=== PATIENT | female | born 1945 | race Caucasian/White ===

== ENCOUNTER → 2017-01-30 | Outpatient (CLI) | payer OTHER ==
[~2017-01-30] MED LIST: EYED; OXYC1TAB3 PO
--- NOTE | 2017-01-31 08:02 | MAMMOGRAPHY REPORT ---
BILATERAL DIGITAL SCREENING MAMMOGRAM WITH CAD: 01/30/2017 CLINICAL HISTORY: Routine screening examination. TECHNIQUE: Bilateral CC and MLO views were obtained. Current study was also evaluated with a Comput er Aided Detection (CAD) system. COMPARISON: Comparison is made to exams dated: 11/23/2015 mammogram, 11/21/2014 mammogram, 11/18/20 13 mammogram, 11/14/2011 mammogram, and 11/11/2009 mammogram - [facility]. BREAST COMPOSITION: The tissue of both breasts is heterogeneously dense, which may obscure small ma sses. FINDINGS: There are a few scattered benign-appearing microcalcifications, stable in the right breast . Architectural distortion in the left upper outer quadrant is stable on all available prior mammog baldo, and likely secondary to previous surgical excisional biopsy. No new suspicious mass, architec tural distortion or cluster of microcalcifications is seen. IMPRESSION: ACR BI-RADS CATEGORY 1: NEGATIVE There is no mammographic evidence of malignancy. A 1 year screening mammogram is recommended. The p atient will receive written notification of the results. Approximately 10% of breast cancers are not detected with mammography. A negative mammographic repor t should not delay biopsy if a clinically suggestive mass is present. Nina Novak M.D. ay/:01/30/2017 16:43:45 Street Cleaner: Jaja JEFFERY)(M), [facility] letter sent: Normal 1/2 BI-RADS Code: ACR BI-RADS Category 1: Negative
== END | disposition home or self-care (01) ==
LOC: C.MAMM 09:31
PROVIDERS: ATTEND Internal Medicine
DX: Z12.31 Encounter for screening mammogram for malignant neoplasm of breast (principal)

== ENCOUNTER → 2018-02-05 | Outpatient (CLI) | payer OTHER ==
--- NOTE | 2018-02-06 15:15 | MAMMOGRAPHY REPORT ---
BILATERAL DIGITAL SCREENING MAMMOGRAM TOMOSYNTHESIS WITH CAD: 02/05/2018 CLINICAL HISTORY: Routine screening. Patient has no complaints. TECHNIQUE: Breast tomosynthesis in addition to standard 2D mammography was performed. Current study was also evaluated with a Computer Aided Detection (CAD) system. COMPARISON: Comparison is made to exams dated: 01/30/2017 mammogram, 11/23/2015 mammogram, 11/21/2014 mammogram, 11/18/2013 mammogram, 11/15/2012 mammogram, and 11/14/2011 mammogram - [facility]. BREAST COMPOSITION: The tissue of both breasts is heterogeneously dense, which may obscure small mas ses. FINDINGS: No suspicious mass, unexpected architectural distortion or cluster of microcalcifications i s seen. Faint focal architectural distortion in the upper outer posterior left breast appears stable dating back to at least 11/10/2008, most likely the site of prior benign surgery in the left breast. IMPRESSION: ACR BI-RADS CATEGORY 1: NEGATIVE There is no mammographic evidence of malignancy. A 1 year screening mammogram is recommended. The pa tient will receive written notification of the results. Approximately 10% of breast cancers are not detected with mammography. A negative mammographic report should not delay biopsy if a clinically suggestive mass is present. Nina Novak M.D. ay/:02/05/2018 16:56:40 Billet Heater Operator: Odalys RUIZ(Jayla)(M), [facility] letter sent: Normal 1/2 BI-RADS Code: ACR BI-RADS Category 1: Negative
== END | disposition home or self-care (01) ==
LOC: C.MAMM 13:29
PROVIDERS: ATTEND Internal Medicine
DX: Z12.31 Encounter for screening mammogram for malignant neoplasm of breast (principal)

== ENCOUNTER 2019-06-05 07:44 | Observation (INO) ==
--- NOTE | 2019-05-28 14:28 | PAT Medication Instructions ---
Medication Instructions Date of Service May 28, 2019 Home Medications losartan 50 mg PO QPM netarsudil [Rhopressa] 1 drp OPB HS Take evening before surgery losartan 50 mg PO QPM netarsudil [Rhopressa] 1 drp OPB HS Other Notes If you have any questions please call us at [phone] or [phone] or [phone] or [phone]
--- NOTE | 2019-05-29 08:48 | Anesthesiology Consultation ---
Date of Service May 29, 2019 Assessment & Plan (1) Encounter for pre-operative examination: - EK05/29/19: NSR at 62bpm. LVH with repolarization abnormality per unconfirmed report. EKG personally reviewed by Dr. Alfonso; given type of procedure/pmhx/fu nctional status, okay to proceed with surgery as scheduled without further cardiac testing/evaluation. - Possible difficult intubation: due to anatomy Chart Review Chart Review: Acceptable Risk for Surgery and Patient seen in Pre Admission Testing Teaching & Discussion Pre-Anesthesia Teaching/Discussion Notes: Instructed NPO after midnight before surgery,except medications with 15 cc of water. Medication instructions provided according to the PAT guidelines. History Surgery Operation Date: 06/05/19 11:00 Proposed Procedures p Left Breast Lumpectomy with Left [place] Lymph Node Biopsy, Excision Left Breast Papilloma, - Vicente Ewing MD, FACS s Right Breast Excision of Radial Scar times Two, Needle Local x Four (Injection Only) - Vicente Ewing MD, FACS Height/Weight Height: 4 ft 10.5 in Weight: 59.2 kg Allergies Allergy/AdvReac Type Severity Reaction Status Date / Time No Known Allergies Verified 05/23/19 13:48 Medications Home Medications Medication Instructions Recorded Confirmed Last Taken losartan 50 mg PO QPM 05/23/19 05/23/19 Unknown netarsudil [Rhopressa] 1 drp OPB HS 05/23/19 05/23/19 Unknown Past Medical History Medical History Cancer BREAST CANCER= NO CHEMO/RADIATION Glaucoma Hypertension Kidney stones Exercise / Class Metabolic Activity III < 4 Walking/Shop/Light housework Past Family History Family History Other No significant family history Past Surgical History Surgical History Benign tumor of parathyroid gland REMOVED H/O breast biopsy X 4 History of bilateral tubal ligation History of cataract surgery RIGHT/LEFT + STENTS History of tooth extraction Past Anesthesia History No Hx of Anesthesia Complications and No Family Hx of Anesthesia Complications History of PONV No Hx of PONV and No Hx of Motion Sickness Social History Smoking Status: Never smoker Do You Dip or Chew Tobacco: No Hx Alcohol Use: No Hx Substance Use: No substance use type: does not use Review of Systems Patient denies chest pain, shortness of breath, cough, wheezing, palpitations. Physical Exam Vital Signs VITALS BP 161/76 P 61 TEMP 97.5 SP02 97%RA RESP 16 PHYSICAL Full neck and c-spine range of motion. Full TMJ range of motion. TMD 2 finger breaths (small chin) Mallampati Score 4 Dentition: lower partial with implants, upper top permanent bridges "all over" Lungs: clear throughout to auscultation Cardiac: regular rate and rhythm, no murmurs noted Spine: kyphosis Carotid arteries: negative bruit Extremities: no edema Testing Laboratory Results 05/29/19 09:15 05/29/19 09:15 Electrocardiogram Date: 05/29/19 NSR at 62bpm. LVH with repolarization abnormality (unconfirmed).
[2019-05-29 09:56] LABS: Basophils # (auto) 0.02 K/uL (0-0.2); Basophils % (auto) 0.3 %; Eosinophils # (auto) 0.04 K/uL (0-0.5); Eosinophils % (auto) 0.5 %; Hematocrit (blood only) 40.8 % (37-47); Hemoglobin 13.5 g/dL (12.0-16.0); Immature Granulocytes # (auto) 0.01 K/uL (0.00-0.02); Immature Granulocytes % (auto) 0.1 %; Lymphocytes # (auto) 1.84 K/uL (1.2-3.4); Lymphocytes % (auto) 24.8 %; Mean Corpuscular Hgb Conc 33.1 g/dL (32-36); Mean Corpuscular Volume 87.4 fL (80-100); Mean Platelet Volume 8.8 fL (7.4-10.4); Monocytes # (auto) 0.62 K/uL (0.11-0.59); Monocytes % (auto) 8.3 %; Platelet Count 357 K/uL (130-400); RDW Coefficient of Variation 13.5 % (11.5-14.5); RDW Standard Deviation 43.3 fL (36.4-46.3); Red Blood Count 4.67 M/uL (4.2-5.4); White Blood Count 7.43 K/uL (4.8-10.8)
[2019-05-29 10:05] LABS: BUN Creatinine Ratio 28.5 (10-20); Calcium 9.7 mg/dl (8.5-10.1); Creatinine Clr Calc Pharmacy 88.5 ml/min; Est GFR (African American) 116.8; Est GFR (Non-African American) 100.8; Potassium 4.3 mmol/L (3.5-5.1)
[~2019-06-05 07:44] MED LIST changes: +CEFAZOLIN 2000MG 2,000 MG/15 ML SYR IV SCH; -EYED; +LR 15ML/HR IV SCH; +MIDAZOLAM HCL 1 MG/ML 2ML VIAL ONE; -OXYC1TAB3 PO; +fentaNYL citrate 100 MCG/2 ML VIAL ONE
[2019-06-05] MEDS ORDERED: ONDANSETRON INJ 2 MG/ML 2 ML VIAL IV PRN ×2 (09:41→13:23)
[2019-06-05] MEDS ORDERED: ATROPINE SULFATE 0.1 MG/ML 10ML SYR IV PRN (09:41)
[2019-06-05] MEDS ORDERED: ePHEDrine sulfate 50 MG/ML AMP IV PRN (09:41)
[2019-06-05] MEDS ORDERED: fentaNYL citrate 100 MCG/2 ML VIAL IV PRN (09:41)
--- NOTE | 2019-06-05 09:45 | Nuclear Medicine Report ---
LEFT BREAST LYMPHOSCINTIGRAPHY CLINICAL HISTORY: Breast cancer. COMPARISON STUDY: Needle localization June 05, 2019. PROCEDURE: The patient presents today for left breast lymphoscintigraphy. The procedure was discussed with the patient and informed consent was obtained. A total of 0.516 mCi of Lymphoseek was injected in 5 intradermal aliquots within a left periareolar distribution at 9:20 AM on June 05, 2019. No imag ing was requested at this time. The patient tolerated the procedure well and no immediate complicatio ns were evident. IMPRESSION: Left breast lymphoscintigraphy. Electronically signed by: Corey Rivera M.D. 06/05/2019 9:44 AM
--- NOTE | 2019-06-05 11:23 | History & Physical Bridge Note ---
Date of Service June 05, 2019 History & Physical Bridge Note I have examined the patient, reviewed the History & Physical and in the interval since the performance of the History & Physical I have noted the following changes of clinical significance: no changes noted
[2019-06-05] MEDS ORDERED: METHYLENE BLUE 0.5% 10 ML VIAL ONE (11:41)
[2019-06-05] MEDS ORDERED: BUPIVACAINE 0.5 % 5 MG/1 ML MPF 30ML VIAL ONE (11:41)
[2019-06-05] MEDS ORDERED: PROPOFOL IV EMULSION 10 MG/ML 20 ML VIAL IV ONE (12:46)
[2019-06-05] MEDS ORDERED: DEXAMETHASONE SOD INJ 4 MG/ML VIAL ONE (12:46)
[2019-06-05] MEDS ORDERED: LIDOCAINE HCL 2% 2 ML VIAL/AMP(20MG/ML) INFIL ONE (12:46)
[2019-06-05] MEDS ORDERED: ONDANSETRON INJ 2 MG/ML 2 ML VIAL ONE (12:46)
[2019-06-05] MEDS ORDERED: fentaNYL citrate 100 MCG/2 ML VIAL ONE (12:46)
--- NOTE | 2019-06-05 13:18 | Operative Report ---
Post Operative Report Pre & Post Diagnosis Operation Date: 06/05/19 11:00 <No data on this case meets the specified criteria> Lt breast cancer and papilloma Rt breast radial scar Procedure Operation Date: 06/05/19 11:00 <No data on this case meets the specified criteria> needle loc x 4 Rt breast bx x 2 Lt breast lumpectomy w/ sentinel lymph node bx and excision papilloma Surgeon Vicente Ewing MD, FACS Skin Pass Operator Olga Martinez Estimated Blood Loss 20 Findings Consistent with Post-Op Diagnosis Specimens right and Lt breast tissue Description of Procedure see dictation I attest to the content of the Intraoperative Record and any orders documented therein. Any exceptions are noted below.
[2019-06-05] MEDS ORDERED: ACETAMINOPHEN 1,000 MG/100 ML VIAL IV ONE (13:20)
[2019-06-05] MEDS ORDERED: HYDROCODONE/ACETAMOPHEN 5/325MG TAB PO PRN ×2 (13:23)
[2019-06-05] MEDS ORDERED: PROMETHAZINE HCL 12.5 MG in SODIUM CHLORIDE 0.9% 50 ML IV PRN (13:23)
[2019-06-05] MEDS ORDERED: MoRPHine SULFATE 2 MG/ML CARP IV PRN ×2 (13:23)
[2019-06-05] MEDS ORDERED: SODIUM CHLORIDE 0.9% 1000ML 1,000 ML IV SCH (13:30)
--- NOTE | 2019-06-05 13:47 | Operative Report ---
DATE OF OPERATION: 06/05/2019 NAME OF OPERATION: Left lumpectomy with sentinel lymph node biopsy and excision of left breast papilloma and right breast biopsy x2. These were all done with needle localizations. STAFF SURGEON: Vicente Ewing MD. BALANCE WHEEL ARM BURNISHER: Drew Martinez PA-C. ANESTHESIA: General. PROCEDURE: The patient was brought in the operating room and placed on the operating table in supine position. Both breasts had 2 needles each. She was prepped and draped in usual fashion. Initially, I performed the left sentinel lymph node biopsy anesthetizing the skin at all incisions using 0.5% plain Marcaine, dissecting in the left axilla, identifying the sentinel node using the Neoprobe, sending it for frozen section. The frozen section was negative. During the frozen section, we performed right breast biopsy, making an incision around the 2 needles carrying dissection down, excising the tissue on the right side at 11:00 with the 7.5 cm needle, and then excising the tissue at 2 o'clock with a 5 cm needle. These were both placed into the Faxitron, the clip was in the center of the tissue. Dr. Novak did evaluate the tissue. At this point, the right breast wound was closed, 2-0 plain for the deep tissue and 4-0 Monocryl for subcuticular closure with Steri-Strips applied. The left axillary incision was also closed with 2-0 plain deep and then 4-0 nylon for the skin. The left breast was approached. Incision was made around the 2 needles. Dissection was initially carried down around the 7.5 cm needle, which was the papilloma. It was excised and the tissue was placed into the Faxitron, the clip was in the center of the tissue. Dr. Novak evaluated this tissue. The next tissue was the invasive tumor, which was a 5 cm needle in the left breast. Dissection was carried down around that needle. It was marked - left breast tissue 5 cm needle invasive tumor with a short silk suture superior, long silk suture inferior and methylene blue deep. I did go down to the muscle. We also placed clips at the level of the tumor. At this point, additional superior and inferior tissue was taken with a long silk suture lateral, short silk suture medial and methylene blue new margin. After appropriate irrigation, the deep tissue was reapproximated using 2-0 plain suture, then the skin reapproximated using subcuticular 4-0 Monocryl with Steri-Strips. The patient was transferred to recovery room in stable condition. I attest to the content of the Intraoperative Record and any orders documented therein. Any exception s are noted below.
--- NOTE | 2019-06-05 14:18 | Anesthesiology Progress Note ---
Date of Service June 05, 2019 Anesthesia Post Procedure Vital Signs Vital Signs: Temp Pulse Pulse Resp BP BP Pulse Ox 06/05/19 14:00 87 23 174/69 H 93 06/05/19 13:50 86 21 177/78 H 94 06/05/19 13:40 94 H 19 174/76 H 96 06/05/19 13:36 98.2 F 104 H 15 155/79 H 97 06/05/19 09:59 98.1 F 63 20 193/64 H 100 Pain Intensity Bilateral Breast: Pain Intensity: 4 Transfer of Care Handoff Completed per policy Notes Mental Status: alert / awake / arousable and participated in evaluation Patient Amnestic to Procedure: Yes Nausea / Vomiting: adequately controlled Pain: adequately controlled Airway Patency, RR, SpO2: stable & adequate BP & HR: stable & adequate Hydration State: stable & adequate Anesthetic Complications: no major complications apparent and Pt Satisfied with anesthetic care
[2019-06-05] MEDS: ACETAMINOPHEN 325 MG TAB PO PRN (19:16)
[2019-06-05] MEDS: CEFAZOLIN 1000MG 1,000 MG/7.5 ML SYR IV SCH (19:18)
[2019-06-05] MEDS ORDERED: LOSARTAN POTASSIUM 50 MG TAB PO SCH (21:00)
[2019-06-06 03:14] VITALS: BP 175/67
[2019-06-06] MEDS: CEFAZOLIN 1000MG 1,000 MG/7.5 ML SYR IV SCH (03:20)
[2019-06-06 07:31] VITALS: TEMP 97.9; O2SAT 97
--- NOTE | 2019-06-06 08:11 | Discharge Summary ---
PRINCIPAL DIAGNOSIS: Left breast cancer. PROCEDURES: The patient underwent left breast lumpectomy with sentinel lymph node biopsy and left breast excision papilloma and right breast biopsy x2. HISTORY OF PRESENT ILLNESS AND HOSPITAL COURSE: The patient is a 73-year-old female with biopsy-proven left breast cancer, also a papilloma, left breast and a radial scar in 2 places, right breast. She was brought into the hospital on 06/05/2019 where she underwent the above procedure and did well with the operation and has done well overnight and is felt stable for discharge home today to be followed in the surgical clinic next week with a visiting nurse at home.
[2019-06-06 08:40] VITALS: PULSE 69
--- NOTE | 2019-06-06 08:46 | Anesthesiology Progress Note ---
Date of Service June 06, 2019 Anesthesia Post Procedure Vital Signs Vital Signs: Temp Pulse Pulse Pulse Resp BP BP 06/06/19 08:39 36.6 C 59 L 69 16 175/67 H 06/06/19 07:30 36.6 C 59 L 16 175/67 H 06/06/19 03:13 36.8 C 65 16 175/67 H 06/05/19 23:25 36.6 C 62 14 138/70 06/05/19 20:31 36.6 C 69 19 113/62 06/05/19 17:37 36.8 C 100 H 18 147/67 H 06/05/19 16:40 36.6 C 86 16 156/74 H 06/05/19 16:00 36.6 C 76 16 150/68 H 06/05/19 15:22 36.9 C 71 16 133/79 06/05/19 15:15 36.6 C 81 16 153/72 H 06/05/19 14:45 36.4 C L 91 H 15 149/72 H 06/05/19 14:20 84 17 163/68 H 06/05/19 14:10 78 22 177/70 H 06/05/19 14:00 87 23 174/69 H 06/05/19 13:50 86 21 177/78 H 06/05/19 13:40 94 H 19 174/76 H 06/05/19 13:36 36.8 C 104 H 15 155/79 H 06/05/19 09:59 36.7 C 63 20 193/64 H Pulse Ox 06/06/19 08:39 97 06/06/19 07:30 97 06/06/19 03:13 98 06/05/19 23:25 95 06/05/19 20:31 92 06/05/19 17:37 96 06/05/19 16:40 94 06/05/19 16:00 95 06/05/19 15:22 96 06/05/19 15:15 94 06/05/19 14:45 94 06/05/19 14:20 97 06/05/19 14:10 93 06/05/19 14:00 93 06/05/19 13:50 94 06/05/19 13:40 96 06/05/19 13:36 97 06/05/19 09:59 100 Pain Intensity Bilateral Breast: Pain Intensity: 2 Notes Mental Status: alert / awake / arousable and participated in evaluation Nausea / Vomiting: adequately controlled Pain: adequately controlled Airway Patency, RR, SpO2: stable & adequate BP & HR: stable & adequate Hydration State: stable & adequate
[2019-06-06] MEDS: ACETAMINOPHEN 325 MG TAB PO PRN (09:26)
--- NOTE | 2019-06-06 14:15 | Mammography Report ---
MULTIPLE NEEDLE LOCALIZATION LEFT BREAST: 06/05/2019 CLINICAL HISTORY: 73-year-old woman with biopsy-proven carcinoma in the left 8:00 breast, also left b reast papilloma and 2 right breast radial scars. Patient presents for bilateral preoperative needle w le[place] localization prior to surgical excision of all 4 lesions. COMPARISON: Comparison is made to exams dated: 05/15/2019 mammogram, 05/07/2019 ultrasound, 05/07/2019 mammogram, 03/27/2019 mammogram, 04/05/2019 mammogram, and 04/12/2019 mammogram - [facility]. PATIENT CONSENT: The risks of the procedure were explained to the patient and informed consent was ob tained. A timeout was performed in both breasts were confirmed as the site for preoperative localiza tion with 2 sites in the right breast and 2 sites in the left breast. The patient denied eating or d rinking anything this morning that would preclude anesthesia. She also denied allergy to lidocaine. PROCEDURE DESCRIPTION: Prior mammograms, ultrasounds, MRIs, ultrasound and MRI guided biopsies includ ing post procedure mammograms were reviewed. All 4 biopsy clips in both breasts are the intended tar gets for preoperative localization. First, the right breast biopsy clips were localized using tomosy nthesis imaging and an alphanumeric grid. The skin of the medial right breast was cleansed with alco hol. 1% buffered Lidocaine without epinephrine was administered as local anesthesia. A 7.5 cm and a 5cm Meeks II needle and wire combination were inserted into the right breast. Optimal positioning w as confirmed and both wires were locked in place, leaving both the needles and wires within the breas t, as per surgeon's preference. Second, the left breast biopsy clips were localized using tomosynthesis imaging and an grid. The ski n of the medial left breast was cleansed with alcohol. 1% buffered lidocaine without epinephrine was administered as local anesthesia. Both a 7.5 cm and a 5 cm Meeks II needle and wire combination w ere inserted into the left breast. Optimal positioning was confirmed and both wires were locked in p lace, leaving both the needles and wires within the breast, as per surgeon's preference. The entire procedure including approach and needle lengths were discussed with the operating surgeon prior to day rgery. The patient tolerated the procedure well and there was no immediate complication. She was tr ansferred to the hospital operating room in satisfactory condition. 2 right breast and 2 left breast specimen radiographs were obtained. Each surgical specimen contains the intended biopsy marker clip in question. Localizing needle and wires are seen within 3 of the 4 clips as the biopsy needle was dislodged from the second right breast specimen. These findings are compatible with successful preoperative localization and subsequent surgical excision x4. IMPRESSION: NEEDLE LOCALIZATION Status post bilateral breast preoperative needle and wire localization for 2 right breast radial scar s, left breast papilloma and left breast carcinoma. Final surgical pathology is pending. Nina Novak M.D. ay/:06/05/2019 15:21:16 Attending Technologist: RT Ronal(R)(M), [facility] Farm Worker: RT Mc(R)(M), [facility]
--- NOTE | 2019-06-07 12:41 | Hospitalist Progress Note ---
Date of Service June 07, 2019 Assessment & Plan (1) Encounter for consultation: Pt was discharged prior to being seen. PG Care Time/CCT Total # of Minutes Spent Total Time Spent with Patient: Total time spent is greater than 50% in coordination of care (as documented) at patient's floor/unit and/or counseling patient:
== END 2019-06-06 11:02 | disposition home health service (06) ==
LOC: 3W 07:44 → ASU 07:44